=== PATIENT | female | born 1960 | race Caucasian/White ===

== ENCOUNTER 2017-06-21 15:53 | Emergency (ER) | payer BC ==
[2017-06-21 16:11] VITALS: BP 127/71; PULSE 96; TEMP 98.9; BMI 32.1
--- NOTE | 2017-06-21 18:26 | PDOC ---
History of Present Illness - General Chief Complaint: Ear Problem Stated Complaint: EAR PROBLEM Time Seen by Provider: 06/21/17 17:00 History Source: Patient Exam Limitations: No Limitations - History of Present Illness Initial Comments: 06/21/17 18:24 57 yr female with c/o clogged ears for 2 weeks. pt has been using OTC ear drops . no pain 06/22/17 11:43 Past History - Past Medical History Allergies/Adverse Reactions: Allergies Allergy/AdvReac Type Severity Reaction Status Date / Time No Known Allergies Allergy Verified 06/21/17 16:08 Home Medications: Ambulatory Orders Esomeprazole Magnesium [Nexium] 2.5 mg PO ASDIR 06/21/17 Rosuvastatin [Crestor -] 5 mg PO HS 06/21/17 GI Disorders: Yes (gerd) Hypercholesterolemia: Yes - Psycho/Social/Smoking Cessation Hx Suicidal Ideation: No Smoking History: Current some day smoker Have you smoked in the past 12 months: Yes Information on smoking cessation initiated: No *Physical Exam - Vital Signs Last Vital Signs Temp Pulse Resp BP Pulse Ox 98.9 F 96 H 19 127/71 96 06/21/17 16:08 06/21/17 16:08 06/21/17 16:08 06/21/17 16:08 06/21/17 16:08 - Physical Exam General Appearance: Yes: Nourished, Appropriately Dressed HEENT: positive: EOMI, KIERAN, Pharynx Normal, Other (impacted cerumen bilaterally ) Neck: positive: Supple. negative: Tender Respiratory/Chest: positive: Lungs Clear, Normal Breath Sounds Cardiovascular: positive: Regular Rhythm, Regular Rate Integumentary: positive: Normal Color, Dry, Warm Neurologic: positive: Fully Oriented, Alert, Normal Mood/Affect, Normal Response , Motor Strength 5/5 Procedures - Additional Procedures Additional Procedures: other (ears irrigated with warm water to remove cerumen with good results bilateraly) Medical Decision Making - Medical Decision Making 06/22/17 11:44 cc: clogged ears history of cerumen impaction will place peroxide and irrigate pt tolerated procedure well large amounts of cerumen removed, ear re-inspected TM intact no redness or evidence of infection seen dc with ENT follow up, pt is aware to place no objects in ear to help clean them *DC/Admit/Observation/Transfer Diagnosis at time of Disposition: Impacted cerumen of both ears - Discharge Dispostion Disposition: HOME Condition at time of disposition: Improved - Referrals Referrals: Michael Sesay MD [Primary Care Provider] - - Patient Instructions Additional Instructions: follow with the ear doctor next week as planned nothing in the ear except the drops you have to loosen wax, you can place in the right ear no Qtips
== END 2017-06-21 18:26 | disposition home or self-care (01) ==
LOC: JERFT 15:53
PROC: 3E1B78Z Irrigation of Ear using Irrigating Substance, Via Natural or Artificial Opening (ICD-10-PCS; principal; 2017-06-21)
PROC: 3E1B78Z Irrigation of Ear using Irrigating Substance, Via Natural or Artificial Opening (ICD-10-PCS; 2017-06-21)
DX: H61.23 Impacted cerumen, bilateral (principal); I10 Essential (primary) hypertension; K21.9 Gastro-esophageal reflux disease without esophagitis; F17.210 Nicotine dependence, cigarettes, uncomplicated
CPT/HCPCS: 99281-25